=== PATIENT | female | born 1985 | race Caucasian/White ===

== ENCOUNTER 2023-07-14 09:59 | Outpatient (CLI) | payer OTHER | END 2023-07-14 10:00 | disposition home or self-care (01) | LOC: CSHMAMMO 09:59 | PROVIDERS: ATTEND Family Medicine | DX: Z12.31 Encounter for screening mammogram for malignant neoplasm of breast (principal); N63.20 Unspecified lump in the left breast, unspecified quadrant; N63.10 Unspecified lump in the right breast, unspecified quadrant | CPT/HCPCS: 77067 ==

== ENCOUNTER 2023-07-21 13:41 | Outpatient (CLI) | payer OTHER | END 2023-07-21 13:42 | disposition home or self-care (01) | LOC: CSHMAMMO 13:41 | PROVIDERS: ATTEND Family Medicine | DX: N63.14 Unspecified lump in the right breast, lower inner quadrant (principal); N63.20 Unspecified lump in the left breast, unspecified quadrant | CPT/HCPCS: 77066; G0279 ==